=== PATIENT | male | born 1965 | race Caucasian/White ===

== ENCOUNTER 2023-07-19 15:37 | Emergency (ER) | payer OTHER, MEDICAID, SELFPAY ==
[2023-07-19 15:39] VITALS: BP 160/72; PULSE 93; RESP 16; TEMP 35.9; O2SAT 100
--- NOTE | 2023-07-19 15:58 | EKG12_ITS ---
Test Reason : CP Blood Pressure : / mmHG Vent. Rate : 087 BPM Atrial Rate : 087 BPM P-R Int : 158 ms QRS Dur : 092 ms QT Int : 358 ms P-R-T Axes : 002 059 047 degrees QTc Int : 430 ms Normal sinus rhythm Possible Left atrial enlargement Inferior-posterior infarct , age undetermined Abnormal ECG Confirmed by FEDERICO GIBBS, EDWINA ([id number]), assistant editor [place] ([id number]) on 07/29/2023 7:47:17 AM Referred By: ADAMS Confirmed By:ADALBERTO CABALLERO MD
--- NOTE | 2023-07-19 15:59 | ED.VIS.CHEST ---
HPI History of Present Illness Chief Complaint: Chest Pain Informant: patient Narrative Narrative: 58-year-old male presenting to the emergency department with a chief complaint of chest pain. Patient has known coronary artery disease having had a quadruple bypass earlier this year at [facility]. He follows there with cardiology. He lives in [facility]. Patient was driving into [place] for patient transport when he started belching and developed left-sided chest tightness left arm numbness/tingling and upper back pain. He notes that movement makes the upper back pain worse. Patient states its been constant for the past 15 minutes. Notes that [place] had an episode of lightheadedness and disorientation that resolved in several minutes. Has not had any since. He notes that he chronically has chest discomfort at baseline. [facility] Medical History (Updated 07/19/23 @ 18:[address] Kieran Morrow DO) CAD (coronary artery disease) Neurofibromatosis Allergy/AdvReac Type Severity Reaction Status Date / Time atorvastatin Allergy Intermediate Other Verified 07/19/23 15:52 gabapentin Allergy Intermediate Other Verified 07/19/23 15:43 Surgical History (Updated 07/19/23 @ 16:[address] Kieran Morrow DO) S/P CABG x 4 Social History Smoking Status: Never smoker ROS ROS ED Constitutional Constitutional ED: Denies chills or weight loss Eyes Eyes: Denies change in vision or diplopia ENT ENT ED: Denies ear pain, rhinorrhea or sore throat Cardiovascular Cardiovascular: Reports chest pain; Denies orthopnea, palpitations or racing heartbeat Respiratory/Chest Respiratory/Chest: Denies cough, dyspnea or orthopnea Gastrointestinal Gastrointestinal: Reports other; Denies abdominal pain, diarrhea, nausea or vomiting Genitourinary Genitourinary ED: Denies dysuria, hematuria or urinary frequency Musculoskeletal Musculoskeletal: Reports back pain; Denies arthralgias or myalgias Integumentary Denies abscess or rash Neurologic Neurologic: Reports paresthesias; Denies headache(s) or weakness Psychiatric Psychiatric: Denies anxiety, depression, suicidal ideation or suicidal thoughts Endocrine Endocrinology: Denies polydipsia, polyphagia or polyuria Allergic/Immunologic Allergic/Immunologic ED: Denies mouth swelling, tongue swelling or urticaria EXAM Physical Exam Const Vital Signs: 07/19/23 15:39 Temperature 96.6 F L Temperature Source Temporal Pulse Rate 93 Respiratory Rate 16 Blood Pressure 160/72 H Blood Pressure Mean 101 Pulse Ox 100 Oxygen Delivery Method Room Air Positive well nourished and well developed General Appearance ED: well developed HEENT Reports normocephalic, head/scalp atraumatic and moist mucous membranes Eyes PERRL and EOMs intact bilaterally Neck no lymphadenopathy, supple and no JVD Resp normal respiratory effort and clear to auscultation bilaterally Cardio regular rate, regular rhythm and no murmurs GI normal to inspection, nondistended, normoactive bowel sounds and non-tender Palpation: soft Back/Spine no CVA tenderness and normal ROM Back/Spine Narrative: Patient has painful range of motion when he goes to sit up. Tender to palpation in the upper thoracic paraspinal region. Extremity normal to inspection General Extremety ED: Negative for edema General Extremity: Negative for edema Neuro oriented x3 and CN's II-XII intact bilaterally Sensorium / Orientation: alert Motor Exam: strength 5/5 throughout Psych mental status grossly normal Mood & Affect: Negative for depressed or tearful Skin no rashes or lesions noted and no wounds Skin Narrative: Changes of neurofibromatosis noted MDM MDM MDM Narrative Medical decision making narrative: My independent interpretation of the single view chest x-ray is small right pleural effusion CBC shows a hemoglobin of 8.6. MCV is 66.2. Patient has a known history of anemia and sees hematology. States he typically runs around 10. 2 sets of cardiac enzymes were normal. D-dimer age corrected at normal at 0.56. There certainly appears to be a musculoskeletal component with the upper back pain and his painful range of motion. Also be a component of reflux/esophageal spasm though less likely. Certainly he has chronic angina and he is anemic at 8.6 which could also be a contributing symptom. At this point I think the patient can be discharged home. He will follow-up with his doctors in [place]. Lab Data Attestation: I reviewed the patient's lab results. Labs: Laboratory Results - last 24 hr 07/19/23 07/19/23 15:45 18:03 WBC 6.9 RBC 4.97 Hgb 8.6 L Hct 32.9 L MCV 66.2 L MCH 17.3 L MCHC 26.1 L RDW Std Deviation 48.4 H RDW Coeff of [place] 21.3 H Plt Count 339 MPV 9.9 Immature Gran % (Auto) 0.600 Neut % (Auto) 73.1 H Lymph % (Auto) 11.6 L Petroleum % (Auto) 11.1 H Eos % (Auto) 2.6 Baso % (Auto) 1.0 Absolute Neuts (auto) 5.0 Absolute Lymphs (auto) 0.80 L Nucleated RBC % 0 Platelet Estimate ADEQUATE RBC Morphology N CHROM Hypochromasia 2+ Anisocytosis 2+ Microcytosis 2+ D-Dimer Quant (PE/DVT) 0.56 H* Sodium 141 Potassium 4.1 Chloride 108 H Carbon Dioxide 29.0 Anion Gap 4 L BUN 23 H Creatinine 1.04 Est GFR (MDRD) Af Amer 95 Est GFR (MDRD) Non-Af 78 BUN/Creatinine Ratio 22.1 H Glucose 84 Calcium 9.0 Troponin I High Sens 6 6 Radiography Diagnostic Testing: Clinical Impression(s) from Imaging Studies Chest X-Ray 07/19/23 16:08 IMPRESSION: Trace right pleural effusion. Electronically Signed: Blake Frye MD at 16:49 EDT , EKG Initial EKG: Attestation: I personally reviewed and interpreted this EKG as follows: Comments: Normal sinus rhythm with a ventricular rate of 87 bpm. No definitive features of ACS noted. Discharge Plan Triage Chief Complaint: Chest Pain ED Provider: Kieran Morrow Dx/Rx/DC Orders Clinical Impression: Anemia, Chest pain Instructions: ED Chest Pain, Uncertain Cause Primary Care Provider: GARRETT JORDAN Referrals: GARRETT JORDAN [Other] Activity Restrictions/Additional Instructions: Your hemoglobin today was 8.6 (MCV 66.2). 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 Copy of your labs was given to you. Disposition Disposition: Home, Self Care
[2023-07-19] MEDS: Aspirin 81 MG TAB.CHEW 324 MG PO (16:05)
--- NOTE | 2023-07-19 16:08 | RAD_ITS ---
INDICATION: chest pain EXAMINATION/TECHNIQUE: X-RAY - XR Chest 1 View COMPARISON: None. FINDINGS: The lungs are clear. Sternal cerclage wires and vascular clips are present from a prior sternotomy and coronary artery bypass graft procedure (CABG). The heart is mildly enlarged. Tortuous and calcified thoracic aorta. Trace right pleural effusion. No pneumothorax. No acute osseous abnormalities. RAD/Chest 1 View (Portable) IMPRESSION: Trace right pleural effusion. Electronically Signed: Blake Frye MD at 16:49 EDT ,
[2023-07-19 16:24] LABS: Anion Gap 4 (5-15); BUN 23 mg/dL (7-18); BUN/Creat Ratio 22.1 RATIO (10-20); Chloride 108 mmol/L (98-107); Creatinine, Serum 1.04 mg/dL (0.70-1.30); EST Glomerular Filtration Rate 78 mL/min (>60); Est Glom Filt Rate - Afr Amer 95 mL/min (>60); Glucose 84 mg/dL (74-106); Potassium 4.1 mmol/L (3.5-5.1); Sodium Level 141 mmol/L (136-145); Troponin-I HS (w/2H Reflex) 6 pg/mL (3.0-78.0)
[2023-07-19 16:26] LABS: Basophil# 0.07 X10^3/uL; Eosinophil# 0.18 X10^3/uL; Eosinophils% 2.6 % (0-5); Hematocrit 32.9 % (40-54); Hemoglobin 8.6 g/dL (13.0-16.5); Lymphocyte % 11.6 % (19-41); Mean Corp Hgb Conc 26.1 g/dL (32-36); Mean Corpuscular Hgb 17.3 pg (27.0-32.0); Mean Corpuscular Volume 66.2 fL (80-94); Mean Platelet Vol. 9.9 fl (6.2-12.0); Monocyte# 0.76 X10^3/uL; Monocyte% 11.1 % (0-10); NRBC Flagged by Analyzer 0 % (0-5); Neutrophil # 5.02 X10^3/uL (2.7-7.7); Neutrophil % 73.1 % (47-70); POSITIVE MORPHOLOGY YES; Platelet Count 339 K/mm3 (150-450); RBC Distribution Width CV 21.3 % (11.6-14.6); RBC Distribution Width SD 48.4 fl (35.1-43.9); Red Blood Count 4.97 M/mm3 (4.6-6.2); White Blood Count 6.9 K/mm3 (4.4-11.0)
[2023-07-19 16:32] LABS: D-Dimer Quantitative (DVT/PE) 0.56 FEU/ug/m (0.27-0.49)
[2023-07-19 16:47] LABS: Differential Indicated SCAN CRITERIA MET
[2023-07-19 16:54] LABS: Anisocytosis 2+; Hypochromasia 2+; Microcytosis 2+; Platelet Estimate ADEQUATE (ADEQ); Red Cell Morphology N CHROM NORMAL (NORM C&C)
[2023-07-19 18:00] LABS: Reflex Troponin-HS? (from REC) Y
[2023-07-19 18:27] LABS: Troponin-I HS 6 pg/mL (3.0-78.0)
[2023-07-19 19:00] VITALS: BP 132/82
== END 2023-07-19 19:00 | disposition home or self-care (01) ==
PROVIDERS: Emergency Provider Emergency Medicine; Visit Provider Emergency Medicine
DX: D64.9 Anemia, unspecified (principal); R07.9 Chest pain, unspecified; I25.10 Atherosclerotic heart disease of native coronary artery without angina pectoris
CPT/HCPCS: 71045; 80048; 84484; 85025; 85379; 93005; 99284; A4216